=== PATIENT | female | born 1950 | race Caucasian/White ===

== ENCOUNTER 2017-02-11 11:44 | Inpatient (IN) | payer MEDICARE ==
[~2017-02-11] VITALS: Ht 165.1 cm; Wt 59.1 kg
[2017-03-03] MEDS ORDERED: MULT-65 PO (13:58)
[2017-03-03] MEDS ORDERED: VITA3000 PO (13:58)
[2017-03-03] MEDS ORDERED: MOBI15TA PO (13:58)
[2017-03-03] MEDS ORDERED: VITA250T3 PO (13:58)
[2017-03-03] MEDS ORDERED: CALC1TAB12 PO (13:58)
[2017-03-10] MEDS ORDERED: PROPOFOL 200 MG/20 ML AMP IV ONE (10:32)
[2017-03-10] MEDS ORDERED: ONDANSETRON HCL 4 MG/2 ML VIAL IV PUSH ONE (10:37)
[2017-03-10] MEDS ORDERED: LACTATED RINGER'S 1000 ML INJ 2,000 ML IV ONE (10:37)
[2017-03-10] MEDS ORDERED: POVIDONE IODINE 5% (ANTISEPSIS KIT) 4 APPLICATIONS EACH NARE PRN (12:45)
[2017-03-10] MEDS ORDERED: SODIUM CHLORID 0.9% 500 ML IV PRN (12:45)
[2017-03-10] MEDS ORDERED: LACTATED RINGER'S 1000 ML IV PRN (12:45)
[2017-03-10] MEDS ORDERED: METOPROLOL TARTRATE 25 MG TAB PO PRN (12:45)
[2017-03-10] MEDS ORDERED: ceFAZolin 2 GM PREMIX 50 ML IV SCH (12:45)
[2017-03-10] MEDS ORDERED: INSULIN HUMAN REGULAR 1,000 UNITS/10 ML VIAL SQ PRN (12:45)
[2017-03-10] MEDS ORDERED: CHLORHEXIDINE GLUCONATE 2 % 1 PACK (2 CLOTHS) TOPICAL PRN (12:45)
[2017-03-10] MEDS ORDERED: CHLORHEXIDINE GLUCONATE 4% SOLN 120 ML BTL TOPICAL SCH (12:45)
[2017-03-10] MEDS ORDERED: VANCOMYCIN 1000 MG/NS 250 ML (for <70 kg) IV SCH ×2 (12:45)
[2017-03-10 13:16] VITALS: BP 138/64; PULSE 71; RESP 16; TEMP 98.5; O2SAT 100
[2017-03-10] MEDS ORDERED: ACETAMINOPHEN 1000 MG/100 ML VIAL IV ONE (13:49)
[2017-03-10] MEDS ORDERED: MIDAZOLAM HCL 2 MG/2 ML VIAL ONE (13:49)
[2017-03-10] MEDS ORDERED: fentaNYL CITRATE 250 MCG/5 ML AMP ONE (13:49)
[2017-03-10] MEDS ORDERED: DEXAMETHASONE SOD PHOS 4 MG/ML VIAL ONE (13:49)
[2017-03-10] MEDS ORDERED: GENTAMICIN SULFATE 80 MG/2 ML VIAL IRRIGATION ONE (15:21)
[2017-03-10] MEDS ORDERED: WALKER WHEELS/F1 MIS (16:40)
[2017-03-10] MEDS ORDERED: BEDSIDE COMMODE1 MI1 (16:40)
--- NOTE | 2017-03-10 16:41 | HHI.FF ---
Face to Face Verification Diagnosis: (1) Osteoarthritis of right hip Physical Therapy Gait training, Transfer training, bed to chair Hip: Total hip, Protocol: Right, Progress to weight bearing Right LE Weight Bearing: WB as tolerated Left LE Weight Bearing: WB as tolerated Nursing RN Days per Week: 3 x Week(s): 4 Nursing: Dressing changes (clean incision with alcohol and apply dry sterile dressing ) Additional Instructions Pt/INR q Friday and , call/text results to Jeanie [phone] Goal INR 1.5-1.8 I have seen patient Zoë Arvizu on 03/10/17. My clinical findings support the need for the requested home health care services because: High risk of falls I certify that my clinical findings support that this patient is homebound because: Post-op weakness Robert Charlton MD Mar 10, 2017 16:41
[2017-03-10] MEDS ORDERED: Post-op Orders (for Pharmacy) MISC XX ONE (16:45)
[2017-03-10] MEDS ORDERED: ONDANSETRON HCL 4 MG/2 ML VIAL IVP PRN (16:45)
[2017-03-10] MEDS ORDERED: ALUMINUM/MAGNESIUM/SIMETH 30 ML CUP PO PRN (16:45)
[2017-03-10] MEDS ORDERED: ZOLPIDEM TARTRATE 5 MG TAB PO PRN (16:45)
[2017-03-10] MEDS ORDERED: ACETAMINOPHEN/HYDROcodone 325 MG/5 MG TAB PO PRN (16:45)
[2017-03-10] MEDS ORDERED: MORPHINE SULFATE 8 MG/ML INJ IM PRN (16:45)
[2017-03-10] MEDS ORDERED: SODIUM CHLORIDE 0.9% FLUSH 5 ML FLUSH IVF PRN (16:45)
[2017-03-10] MEDS ORDERED: DO NOT ADM ANY ANTICOAGULANT DRUGS PRN (16:52)
[2017-03-10] MEDS ORDERED: MORPHINE SULFATE 4 MG/ML INJ ONE (16:57)
--- NOTE | 2017-03-10 17:00 | HHI.PR ---
Immediate Post Op Note Procedure Date: Mar 10, 2017 Pre Op Diagnosis: R Hip OA,Acet Dysplasia Post Op Diagnosis: Same Surgeon: Robert Charlton MD Tie Layer(s): Jeanie Chatterjee PA-C Procedure: R THR Complications: None Specimen(s) removed: None Estimated blood loss: 500cc Anesthesia: General Drains: None Patient Condition: Good Implant/Devices: SEE IMPLANT LOG (if applicable) Date/Time of Procedure: SEE SURGICAL CARE RECORD Robert Charlton MD Mar 10, 2017 17:00
[2017-03-10] MEDS ORDERED: *morphine SULFATE 8 MG/ML PERIprocedure ONLY ONE ×2 (17:17→17:34)
[2017-03-10] MEDS: LACTATED RINGER'S 1000 ML INJ 1,000 ML IV SCH (17:50)
--- NOTE | 2017-03-10 18:17 | RADRPT ---
EXAM DATE/TIME: 03/10/2017 17:17 [facility] COMPARISON: No previous studies available for comparison. INDICATIONS : Post right hip arthroplasty MEDICAL HISTORY : Arthritis. SURGICAL HISTORY : None. ENCOUNTER: Initial ACUITY: 1 day PAIN SCORE: 0/10 LOCATION: Right Hip FINDINGS: A lateral view of the right hip with AP pelvis was obtained. Right hip arthroplasty. No hardware loo sening. Postsurgical changes. CONCLUSION: Right hip arthroplasty. Sid Simon MD on March 10, 2017 at 18:14 Board Certified Radiologist. This report was verified electronically.
[2017-03-10] MEDS ORDERED: *PROMETHAZINE 25 MG/ML VIAL PERIprocedural use ONLY ONE (18:52)
[2017-03-10 20:33] VITALS: BP 92/52; PULSE 71; RESP 17; TEMP 96; O2SAT 100
[2017-03-10] MEDS: SODIUM CHLORIDE 0.9% FLUSH 5 ML FLUSH IVF SCH (21:53)
[2017-03-10 23:50] VITALS: O2SAT 100
[2017-03-11] VITALS: BP 94/52; PULSE 68; RESP 20; TEMP 98.6; O2SAT 98
[2017-03-11 04:00] VITALS: BP 100/49; PULSE 73; RESP 20; TEMP 97.7; O2SAT 78
[2017-03-11] MEDS: LACTATED RINGER'S 1000 ML INJ 1,000 ML IV SCH ×2 (05:28→08:58)
[2017-03-11 07:16] LABS: REVIEW FLAG FINAL
[2017-03-11 07:20] LABS: PROTHROMBIN TIME - PATIENT 23.2 SEC (9.8-11.6)
--- NOTE | 2017-03-11 07:28 | PD.ORT.PN ---
Subjective Subjective Remarks POD#1 R THR Patient wishes to go home today No c/o sob;no chest pain Objective Vitals Vital Signs Date Time Temp Pulse Resp B/P Pulse Ox O2 Delivery O2 Flow Rate FiO2 03/11/17 04:00 97.7 73 20 100/49 78 03/11/17 00:00 98.6 68 20 94/52 98 03/10/17 23:50 100 Nasal Cannula 2.00 03/10/17 22:08 99 Room Air 03/10/17 20:39 Nasal Cannula 2.00 03/10/17 20:33 96.0 71 17 92/52 100 03/10/17 20:00 62 14 98/52 100 Nasal Cannula 2 03/10/17 19:00 64 14 97/49 100 Nasal Cannula 2 03/10/17 18:30 97.2 58 13 106/51 100 Nasal Cannula 2 03/10/17 18:30 97.2 03/10/17 18:15 59 12 109/53 100 Nasal Cannula 2 03/10/17 18:00 70 13 115/58 100 Nasal Cannula 2 03/10/17 17:45 58 15 109/55 100 Nasal Cannula 2 03/10/17 17:30 60 14 106/51 100 Nasal Cannula 2 03/10/17 17:15 56 14 102/50 100 Nasal Cannula 2 03/10/17 17:00 61 17 114/56 96 Nasal Cannula 2 03/10/17 16:55 96.3 03/10/17 16:50 96.3 66 10 134/62 98 Nasal Cannula 2 03/10/17 13:16 98.5 71 16 138/64 100 I/O 03/10/17 03/10/17 03/10/17 03/11/17 03/11/17 03/11/17 07:00 15:00 23:00 07:00 15:00 23:00 Intake Total 3327 ml 997 ml Output Total 500 ml Balance 2827 ml 997 ml Intake Oral 720 ml 360 ml IV Total 607 ml 637 ml Other 2000 ml Output Estimated Blood Loss 500 ml # Voids 3 2 # Bowel Movements 0 0 Result Diagram: 03/11/17 0601 Objective Remarks N/V intact No LLD Neg maritza's;no calf tenderness Assessment & Plan Assessment and Plan [place] stable D/C home today Coumadin,TEDS,sequentials for DVT prophylaxsis Robert Charlton MD Mar 11, 2017 07:27
[2017-03-11] MEDS: SODIUM CHLORIDE 0.9% FLUSH 5 ML FLUSH IVF SCH (07:46)
[2017-03-11 08:00] VITALS: BP 97/48; PULSE 77; RESP 18; TEMP 98.3; O2SAT 98
[2017-03-11] MEDS: ACETAMINOPHEN/HYDROcodone 325 MG/5 MG TAB PO PRN ×2 (10:23→15:20)
[2017-03-11 11:48] VITALS: BP 107/47; PULSE 84; RESP 18; TEMP 99.4; O2SAT 100
[2017-03-11] MEDS ORDERED: WARFARIN SOD 5 MG TAB PO SCH (16:00)
[2017-03-11] MEDS ORDERED: DOCUSATE SODIUM 100 MG CAP PO SCH (21:00)
--- NOTE | 2017-03-12 13:27 | MP ---
cc: JADIEL MAGUIRE ALBERT DATE OF SURGERY 03/10/2017 PREOPERATIVE DIAGNOSIS Right hip severe osteoarthritis, acetabular dysplasia. POSTOPERATIVE DIAGNOSIS Right hip severe osteoarthritis, acetabular dysplasia. PROCEDURE Right total hip arthroplasty. SURGEON Flaquita Charlton MD MOLD MAINTENANCE TECHNICIAN Jeanie Chatterjee PA-C SPECIMENS None ESTIMATED BLOOD LOSS 500 cc COMPLICATIONS None ANESTHESIA General DRAINS None CONDITION Stable PLAN OF ACTIVITY Per orders. PROCEDURE My office clerk assistant Jeanie Chatterjee PA-C was present for the entire surgical case. She was medically necessary for the entire case because of the complexity of the case and to facilitate the performance of the procedure. The LABOR REPRESENTATIVE at the back table was not of a skill set in this case to manipulate the instruments e.g. with the multiple different soft tissue tractors, trial implants and permanent implants. The patient brought into the operating room and had satisfactory general anesthesia by the Department of Anesthesia. The patient was placed in the lateral decubitus position. All pressure points were well-padded. The right hip and lower extremity was prepped and draped in the usual sterile manner. Small posterolateral exposure to the hip was made. All bleeders were coagulated. Dissection carried down through the subcu tissue. The fascia cecilio and gluteus rory was incised in line with the skin incision. The short externals removed as a group. Hip abductors were preserved. Capsulotomy was performed. The hip was dislocated posteriorly. The patient was found to have a moderate degree of synovitis with severe osteoarthritis and acetabular dysplasia. Osteotomy on the femoral neck was made at the appropriate level. Exposure to the acetabulum made. The acetabulum, labrum and capsule was surgically excised. Using hemispherical reamers, the hip was sequentially reamed to 53 mm in outer diameter. Bicentric cup Press-Fit type manner was found be stable and satisfactory. Attention was taken to the proximal femur. Using the Biomet taper lock system, it was sequentially broached to a #10 broach standard offset, +3 neck, 28 mm ball was used, the hip was then reduced. The patient was found to have satisfactory stability, satisfactory limb lengths, and satisfactory range of motion. The hip was dislocated again posteriorly. The #10 prosthesis in approximately 15 degrees of anteversion placed in the proximal femur with a "excellent fit and fill." A +3, 28 mm head was assembled onto the trunnion. It was a ceramic head. The hip was reduced. Patient found to have satisfactory stability and satisfactory limb lengths and satisfactory range of motion. The wound again was irrigated with copious amounts of sterile saline antibiotic solution. The wound itself was dry. The short external rotators were repaired back to the greater trochanter with drill holes using #2 Tycron suture. Subcutaneous tissues closed in layers with the fascia cecilio and gluteus rory closed with #2 Tycron suture and subcu layers with 0 Vicryl and 2-0 Vicryl. The skin approximated with running subcuticular 2-0 nylon stitch. Sterile dressings were applied. The patient tolerated the procedure well and arrived in the recovery room in stable and satisfactory condition. MD JESUS Davis/JERAMIE /4:55 PM /1:13 PM
== END 2017-03-11 15:23 | disposition home health service (06) | DRG 470 ==
LOC: HSDI 03-10 12:19 → EDUNIT# 03-10 12:30 → N06A 03-10 20:33
PROVIDERS: ADMIT Orthopaedic Surgery Orthopaedic Surgery of the Spine; ATTEND Orthopaedic Surgery Orthopaedic Surgery of the Spine
PROC: 0SR903Z Replacement of Right Hip Joint with Ceramic Synthetic Substitute, Open Approach (ICD-10-PCS; principal; 2017-03-10 14:21)
DX: M16.11 Unilateral primary osteoarthritis, right hip (principal); M65.861 Other synovitis and tenosynovitis, right lower leg; Z87.891 Personal history of nicotine dependence
CPT/HCPCS: 73501; 85014; 85018; 85610; 86850; 86900; 86901; 86920; C1776; J0131; J0690; J1100; J1580; J2250; J2270; J2405; J2550; J3010; J3370; J7050; J7120; L1830

== ENCOUNTER → 2017-03-03 | Outpatient (CLI) | payer MEDICARE ==
[~2017-03-03] MED LIST: BEDSIDE COMMODE1 MI1; CALC1TAB12 PO; MOBI15TA PO; MULT-65 PO; VITA250T3 PO; VITA3000 PO; WALKER WHEELS/F1 MIS
== END ==
LOC: CPRE 11:45
PROVIDERS: ATTEND Orthopaedic Surgery Orthopaedic Surgery of the Spine
DX: M16.9 Osteoarthritis of hip, unspecified (principal)